=== PATIENT | female | born 1995 ===

== ENCOUNTER 2017-04-22 14:13 | Emergency (ER) | payer BC, OTHER ==
[2017-04-22 14:43] VITALS: BP 107/71; PULSE 77; RESP 18; TEMP 100.7; O2SAT 99
--- NOTE | 2017-04-22 16:13 | C.PDOC ---
History Of Present Illness 21 y/o female presents to the ER complaining of sore throat, cough,congestion, and fever which began yesterday. Patient reports that she took Motrin at 7 am which provided mild relief. Patient denies having any diffuclty breathing and swallowing, chest pain, abdominal pain, GI symptoms, and symptoms. Time Seen by Provider: 04/22/17 15:36 Chief Complaint (Nursing): Flu-like Symptoms History Per: Patient Onset/Duration Of Symptoms: Days Current Symptoms Are (Timing): Still Present Associated Symptoms: Fever, Sore Throat, Cough, Nasal Congestion Past Medical History Reviewed: Historical Data, Nursing Documentation, Vital Signs Vital Signs: Last Vital Signs Temp 100.7 F H 04/22/17 14:41 Pulse 77 04/22/17 14:41 Resp 18 04/22/17 14:41 BP 107/71 04/22/17 14:41 Pulse Ox 99 04/22/17 16:24 - Medical History PMH: No Chronic Diseases Surgical History: No Surg Hx Family History: States: No Known Family Hx - Social History Hx Alcohol Use: No Hx Substance Use: No - Immunization History Hx Tetanus Toxoid Vaccination: No Hx Influenza Vaccination: No Hx Pneumococcal Vaccination: No Review Of Systems Except As Marked, All Systems Reviewed And Found Negative. Constitutional: Positive for: Fever. Negative for: Chills ENT: Positive for: Nose Congestion, Throat Pain Cardiovascular: Negative for: Chest Pain Respiratory: Positive for: Cough Gastrointestinal: Negative for: Nausea, Vomiting, Abdominal Pain, Diarrhea Genitourinary: Negative for: Dysuria, Frequency Physical Exam - Physical Exam Appears: Non-toxic, No Acute Distress Skin: Normal Color, Warm Head: Atraumatic, Normacephalic Eye(s): bilateral: Normal Inspection, PERRL, EOMI Ear(s): Bilateral: Normal Nose: Normal Oral Mucosa: Moist Throat: Normal, No Erythema, No Exudate Neck: Normal ROM, Supple Chest: Symmetrical Cardiovascular: Rhythm Regular Respiratory: Normal Breath Sounds, No Accessory Muscle Use Gastrointestinal/Abdominal: Normal Exam, Soft, No Tenderness Extremity: Normal ROM Neurological/Psych: Oriented x3, Normal Speech, Normal Cognition ED Course And Treatment O2 Sat by Pulse Oximetry: 99 (RA) Pulse Ox Interpretation: Normal Progress Note: Flu swab ordered. Flu swab positive for Influenza A. Motrin and Tamiflu given to patient. Disposition - Disposition Disposition: HOME/ ROUTINE Disposition Time: 16:12 Condition: STABLE Additional Instructions: Follow up with your primary medical doctor or clinic in 2-5 days for further evaluation. Take medications as prescribed. Return to the emergency department at any time if symptoms persist or worsen. Prescriptions: Oseltamivir Phosphate [Tamiflu] 75 mg PO BID #10 capsule Instructions: Influenza (ED) Forms: [facility] (Estonian), Work Excuse - Clinical Impression Clinical Impression: Influenza - PA / SUPERVISOR SPEECH / Resident Statement MD/DO has reviewed & agrees with the documentation as recorded. - Scribe Statement The provider has reviewed the documentation as recorded by the Petros Staton Provider Attestation All medical record entries made by the Ganeshibe were at my direction and personally dictated by me. I have reviewed the chart and agree that the record accurately reflects my personal performance of the history, physical exam, medical decision making, and the department course for this patient. I have also personally directed, reviewed, and agree with the discharge instructions and disposition.
== END 2017-04-22 16:24 | disposition home or self-care (01) ==
LOC: C.ER 14:13
DX: J11.1 Influenza due to unidentified influenza virus with other respiratory manifestations (principal)